=== PATIENT | female | born 1995 ===

== ENCOUNTER 2018-05-14 23:31 | Emergency (ER) | payer SELFPAY ==
[2018-05-14 23:51] VITALS: O2SAT 100
[2018-05-15] MEDS: PROPARACAINE/FLUORESCEIN SOD 100 DROP/5 ML BOTTLE OS STA (00:44)
[2018-05-15] MEDS ORDERED: Erythromycin 0.5% Ophth Oint 1 APPLIC/3.5 G ONE (01:15)
--- NOTE | 2018-05-15 01:27 | C.PDOC ---
History Of Present Illness 23 year old female presents to the ED for evaluation of left eye pain and swelling. Patient reports that approximately 2 hours ago she noticed her left eye got swollen and painful. Patient denies any known allergens. Patient denies fever, chills, eye discharge, throat swelling, lip swelling, tongue swelling, SOB , rash. Time Seen by Provider: 05/14/18 23:51 Chief Complaint (Nursing): Eye Problem History Per: Patient History/Exam Limitations: no limitations Onset/Duration Of Symptoms: Hrs (2) Current Symptoms Are (Timing): Still Present Injury To Eye?: No Quality: "Pain" Wears Contact Lens?: No Associated Symptoms: Pain, Swelling Recent travel outside of the [place]: No Additional History Per: Patient Past Medical History Reviewed: Historical Data, Nursing Documentation, Vital Signs Vital Signs: Last Vital Signs Temp 97.4 F L 05/14/18 23:40 Pulse 69 05/14/18 23:40 Resp 20 05/14/18 23:40 BP 104/65 05/14/18 23:40 Pulse Ox 100 05/14/18 23:40 - Medical History PMH: No Chronic Diseases Surgical History: No Surg Hx Family History: States: Unknown Family Hx - Social History Hx Alcohol Use: No Hx Substance Use: No - Immunization History Hx Tetanus Toxoid Vaccination: No Hx Influenza Vaccination: No Hx Pneumococcal Vaccination: No Review Of Systems Constitutional: Negative for: Fever, Chills Eyes: Positive for: Pain, Conjunctivae Inflammation, Eyelid Inflammation, Redness ENT: Negative for: Ear Discharge, Nose Discharge, Mouth Swelling Respiratory: Negative for: Shortness of Breath Skin: Negative for: Rash Physical Exam - Physical Exam Appears: Non-toxic, No Acute Distress Skin: Normal Color, Warm, Dry, No Rash Head: Atraumatic, Normacephalic, Swelling (left periorbital) Eye(s): right: Normal Inspection, left: Other (conjuctival injection ) Oral Mucosa: Moist Tongue: No Swelling Lips: No Swelling Throat: Normal, No Erythema, No Exudate Neck: Normal ROM, Supple Chest: Symmetrical Cardiovascular: Rhythm Regular Respiratory: Normal Breath Sounds, No Rales, No Rhonchi, No Wheezing Extremity: Normal ROM, No Tenderness, No Swelling Neurological/Psych: Oriented x3, Normal Speech Gait: Steady ED Course And Treatment O2 Sat by Pulse Oximetry: 100 (ON RA) Pulse Ox Interpretation: Normal Medical Decision Making Medical Decision Making: Plan: * Benadryl 25 mg PO * Erythromycin 1 haile OS * Flucaine eye drops 2 drops OS (+) uptake to the mid eye. Disposition - Disposition Referrals: Dell Torres MD [Staff Provider] - Disposition: HOME/ ROUTINE Disposition Time: : Condition: STABLE Additional Instructions: Follow up with the Eye doctor within 1-2 days without fail. return if worsened. Prescriptions: Amoxicillin/Clavulanate [Augmentin 875 MG-125 MG] 1 tab PO BID #14 tab DiphenhydrAMINE [Benadryl] 25 mg PO QID #28 cap Tobramycin 0.3% [Tobramycin 5 Ml] 1 drop OS TID #1 bottle Instructions: Corneal Abrasion (DC) Forms: [employer] (Mal[place]ian), Work Excuse - Clinical Impression Clinical Impression: Corneal abrasion, Conjunctivitis - PA / [employer] / Resident Statement MD/DO has reviewed & agrees with the documentation as recorded. - Scribe Statement The provider has reviewed the documentation as recorded by the Scribe Fredy Bains All medical record entries made by the Scribe were at my direction and personally dictated by me. I have reviewed the chart and agree that the record accurately reflects my personal performance of the history, physical exam, medical decision making, and the department course for this patient. I have also personally directed, reviewed, and agree with the discharge instructions and disposition.
[2018-05-15 01:33] VITALS: BP 103/73; PULSE 60; RESP 16; TEMP 98.1
[2018-05-15] MEDS: Erythromycin 0.5% Ophth Oint 1 APPLIC/3.5 G OS STA (01:35)
== END 2018-05-15 01:38 | disposition home or self-care (01) ==
LOC: C.ER 23:31
DX: S05.02XA Injury of conjunctiva and corneal abrasion without foreign body, left eye, initial encounter (principal); X58.XXXA Exposure to other specified factors, initial encounter; H10.9 Unspecified conjunctivitis